=== PATIENT | male | born 1990 | race Caucasian/White ===

== ENCOUNTER 2020-06-11 18:35 | Emergency (ER) | payer OTHER ==
[~2020-06-11] VITALS: Ht 177.8 cm; Wt 83.9 kg
--- NOTE | 2020-06-11 19:55 | NUR ---
Patient came to ER ambulatory c/o pte was expusure to carbon dioxide for a few seconds. Will continue to monitor the patient during the shift.
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
[2020-06-11 20:03] VITALS: BP 110/78
--- NOTE | 2020-06-11 20:15 | NUR ---
pain medication given as EDP ordered no adverse effect noted. Will continue to monitor.
[2020-06-11 20:37] VITALS: BP 129/87
== END 2020-06-11 20:39 | disposition home or self-care (01) ==
LOC: EMR 19:51
DX: G44.89 Other headache syndrome (principal); T58.91XA Toxic effect of carbon monoxide from unspecified source, accidental (unintentional), initial encounter; X58.XXXA Exposure to other specified factors, initial encounter; Y92.9 Unspecified place or not applicable
CPT/HCPCS: 82803; 99283